=== PATIENT | male | born 1965 | race African-American/Black ===

== ENCOUNTER 2019-05-01 07:44 | Emergency (ER) | payer MEDICAID ==
[~2019-05-01] VITALS: Ht 193 cm; Wt 103.6 kg
[~2019-05-01 07:44] MED LIST: LISI-660 PO; OXYC5TAB3 PO; PREG25 PO
[2019-05-01] MEDS ORDERED: ASCO500 PO (08:02)
[2019-05-01] MEDS ORDERED: IRON18TA PO (08:02)
[2019-05-01 08:04] LABS: GLUCOSE,POINT OF CARE 184 MG/DL (70-110)
[2019-05-01] MEDS ORDERED: KETOROLAC TROMETHAMINE 60 MG/2 ML VIAL IM ONE (09:30)
[2019-05-01] MEDS ORDERED: ACETAMINOPHEN 500 MG TABLET PO ONE (10:15)
[2019-05-01 11:00] VITALS: BP 119/75
== END 2019-05-01 11:17 | disposition home or self-care (01) ==
LOC: EMS 07:46
DX: M19.90 Unspecified osteoarthritis, unspecified site (principal); I10 Essential (primary) hypertension; E78.00 Pure hypercholesterolemia, unspecified; E11.9 Type 2 diabetes mellitus without complications; F32.9 Major depressive disorder, single episode, unspecified; Z79.899 Other long term (current) drug therapy
CPT/HCPCS: J1885